=== PATIENT | female | born 1975 | race Caucasian/White ===

== ENCOUNTER 2017-12-16 17:57 | Emergency (ER) | payer MEDICAID ==
[~2017-12-16] VITALS: Ht 165.1 cm; Wt 51.7 kg
[2017-12-16 18:06] VITALS: BP 103/57; Ht 165.1 cm; Wt 51.7 kg
== END 2017-12-16 19:17 | disposition home or self-care (01) ==
LOC: ED 17:57
DX: J40 Bronchitis, not specified as acute or chronic (principal); J03.90 Acute tonsillitis, unspecified; G44.209 Tension-type headache, unspecified, not intractable
CPT/HCPCS: J7512